=== PATIENT | female | born 1985 | race Caucasian/White ===

== ENCOUNTER → 2019-12-15 10:01 | Outpatient (CLI) | payer OTHER, SELFPAY ==
--- NOTE | 2019-12-15 10:06 | DI.US.S_ITS ---
PROCEDURE: US OB >= 14 WEEKS FETUS INDICATIONS: ANATOMY OUTSIDE/PRIOR DATING DATA: Last menstrual period (LMP): 07/26/2019. LMP-based estimated date of delivery (ZACH): 05/01/2019 . First dating scan (date and location): 12/15/2019 . Estimated date of delivery (ZACH) from first dating scan: 04/29/2020 . TECHNIQUE: Real-time scanning was performed of the fetus, with image documentation and biometric measurements. Endovaginal scanning: No COMPARISON: None. FINDINGS: General: A single living intrauterine gestation is present. Presentation: Breech. Placenta: Placental position is anterior fundal , without previa. Amniotic fluid index: 12.1 cm, normal range is 5-24 cm. heart rate: 143 beats per minute. Maternal cervical canal: 4.5 cm long. Normal lower limit is 2.5 cm. biometrics: Biparietal diameter: 20 weeks 1 day Head circumference: 20 weeks 5 days Abdominal circumference: 20 weeks 5 days Femur length: 20 weeks 4 days Estimated gestational age from initial scan: not applicable. Composite gestational age from present scan: 20 weeks 4 days Estimated weight and percentile: 467 g; 65th percentile Measurement variability for biometric dating: +/- 7 days from 14 weeks to 15 weeks 6 days gestation, +/- 10 days from 16 weeks to 21 weeks 6 days gestation, +/- 2 weeks from 22 weeks to 27 weeks 6 days gestation, +/- 3 weeks for 28 weeks gestation or later. weight reference: 4500 g or EFW >90/95% is considered macrosomia or large for gestational age. EFW <10% is small for gestational age. EFW 5% or less is considered intra-uterine growth restriction. Anatomic survey: Neuro: Ventricles are non-dilated at less than 10 mm. Cisterna magna is normal at 3-11 mm. Cerebellum is normal in size and morphology. Nuchal skin fold: Normal at less than 6 mm between 14-21 weeks gestational age. Face: Nose and lips, facial profile are normal. Spine: Suboptimally visualized. Heart: 4-chambered heart is present, with normal ventricular outflow tracts. Diaphragm: Diaphragm is intact. Stomach: Left-sided stomach is present. Kidneys: No hydronephrosis. Normal is less than 5 mm in 2nd trimester, less than 7 mm in 3rd trimester. Cord: 3-vessel cord has orthotopic insertion. Marginal cord insertion site along the superior margin of the placenta. Bladder: Normal in size. Extremities: All 4 extremities identified. IMPRESSION: 1. A 20 week 4 day single living IUP corresponding to ultrasound ZACH of 04/29/2020. 2. Spine not well visualized; otherwise normal anatomic survey. 3. Marginal cord insertion. Dictated by: Bernardo Laboy [facility] Interpreted: Arya Coker MD on 12/15/2019 at 13:19 Approved by: Arya Ckoer M.D. on 12/15/2019 at 18:22
== END ==
PROVIDERS: Referring Provider Obstetrics & Gynecology; Visit Provider Obstetrics & Gynecology
DX: Z34.82 Encounter for supervision of other normal pregnancy, second trimester (principal); Z3A.20 20 weeks gestation of pregnancy
CPT/HCPCS: 76811

== ENCOUNTER → 2020-01-29 10:44 | Outpatient (CLI) | payer OTHER, SELFPAY ==
[2020-01-29 12:06] LABS: Appearance Urine UA SL CLOUDY; Bilirubin Urine UA NEGATIVE (NEGATIVE); Glucose Urine UA NEGATIVE (Negative); Ketones Urine UA NEGATIVE (NEGATIVE); Leukocyte Esterase Urine UA 3+ (NEGATIVE); Nitrite Urine UA NEGATIVE (Negative); Occult Blood Urine UA TRACE-LYSED (Negative); Protein Urine UA NEGATIVE (Negative); Specific Gravity Urine UA <=1.005 (1.000-1.035); Urobilinogen Urine UA 0.2 E.U./dL (0.2)
[2020-01-29 12:15] LABS: Add Manual Diff / Slide Review NO; Basophils Absolute Auto 0 /uL (0-100); Basophils Percent Auto 0.3 % (0-2); Eosinophils Absolute Auto 100 /uL (0-450); Eosinophils Percent Auto 0.8 % (2-4); Hematocrit 33.7 % (36-46); Hemoglobin 11.5 g/dL (12.0-16.0); Lymphocytes Absolute Auto 1600 /uL (1100-4500); Lymphocytes Percent Auto 18.2 % (25-40); Mean Corpuscular Hemoglobin 30.3 PG (26-34); Mean Corpuscular Volume 88.9 fL (80-100); Monocytes Absolute Auto 400 /uL (0-900); Monocytes Percent Auto 4.3 % (3-14); Neutrophils Absolute Auto 6600 /uL (1500-7000); Neutrophils Percent Auto 76.4 % (50-75); Platelet Count 262 X10^3/uL (150-400); Red Blood Cell Count 3.79 X10^6/uL (4.0-5.2); Red Cell Distribution Width 13.8 % (11.6-14.8); White Blood Cell Count 8.6 X10^3/uL (4.5-11.0)
[2020-01-29 12:16] LABS: pH Urine UA 6.5 (4.5-8.0)
[2020-01-29 12:42] LABS: Color Urine UA Straw; RBC Urine 0-1/HPF (0-5/HPF); WBC Urine 0-1/HPF (0-5/HPF)
[2020-01-29 12:43] LABS: Bacteria Urine Few (2-10)
[2020-01-29 13:09] LABS: GTT (PREG) 1 Hour PP 50gm Dose 121 mg/dL (76-139)
[2020-01-29 15:24] LABS: HIV 1 & 2 Ab/Ag 4th Gen Combo NEGATIVE (NEGATIVE); Hep C Virus Ab w/Reflex Quant NEGATIVE s/c (NEGATIVE); Hepatitis B Surface Antigen NEGATIVE s/c (NEGATIVE); Rubella Antibody IgG 7.2 IU/mL (>15)
[2020-01-30 06:09] LABS: RPR Screen Non Reactive (Non Reactive)
[2020-01-30 09:11] LABS: Varicella IgG Antibody <135 index (Immune >165)
== END ==
PROVIDERS: PCP Obstetrics & Gynecology; Referring Provider Obstetrics & Gynecology; Visit Provider Obstetrics & Gynecology
DX: Z34.93 Encounter for supervision of normal pregnancy, unspecified, third trimester (principal); Z3A.26 26 weeks gestation of pregnancy
CPT/HCPCS: 36415; 80055; 81003; 81015; 82950; 86787; 86803; 86850; 86900; 86901; 87086; 87389